=== PATIENT | female | born 2000 ===

== ENCOUNTER 2019-02-28 10:22 | Emergency (ER) | payer OTHER ==
[~2019-02-28] VITALS: Ht 182.9 cm; Wt 77.1 kg
[~2019-02-28 10:22] MED LIST: AMOX50SU PO; AZIT200SU PO; CODGUAEL PO; PROCODE120
[2019-02-28] MEDS ORDERED: Augmentin 875-1 EACH PO (12:20)
== END 2019-02-28 12:48 | disposition home or self-care (01) ==
LOC: ER 10:22
DX: L05.01 Pilonidal cyst with abscess (principal); F17.200 Nicotine dependence, unspecified, uncomplicated
CPT/HCPCS: 10080; 36415; 72193; 84703; 87070; 87075; 87205; 99284-25; Q9967

== ENCOUNTER → 2024-08-12 | Outpatient (CLI) | payer OTHER ==
[~2024-08-12] MED LIST changes: +Augmentin 875-1 EACH PO
[2024-08-12 17:39] LABS: BASOPHILS ABSOLUTE AUTO 0.02 K/mm3 (0.00-0.23); BASOPHILS PERCENT AUTO 0 % (0-2); EOSINOPHILS PERCENT AUTO 1 % (0-6); Hematocrit 37.6 % (33.0-51.0); Hemoglobin 12.7 g/dL (11.5-16.0); IMMATURE GRAN ABSOLUTE AUTO 0.04 K/mm3 (0.00-0.10); IMMATURE GRAN PERCENT AUTO 0 % (0-1); LYMPHOCYTES ABSOLUTE AUTO 1.74 K/mm3 (0.84-5.20); LYMPHOCYTES PERCENT AUTO 17 % (21-46); MONOCYTES ABSOLUTE AUTO 0.62 K/mm3 (0.16-1.47); MONOCYTES PERCENT AUTO 6 % (4-13); Mean Corpuscular HGB 29.3 pg (26.0-34.0); Mean Corpuscular HGB Conc 33.8 g/dL (31.5-36.5); Mean Corpuscular Volume 87 fL (80-100); Mean Platelet Volume 13.4 fL (9.1-12.4); NEUTROPHILS ABSOLUTE AUTO 7.72 K/mm3 (1.96-9.15); NEUTROPHILS PERCENT AUTO 75 % (41-73); Platelet Count 185 K/mm3 (150-400); RDW Coefficient Variation 13.1 % (11.7-14.2); RDW Standard Deviation 41.1 fL (35.1-46.3); Red Blood Cell Count 4.34 M/mm3 (3.80-5.20); White Blood Cell Count 10.24 K/mm3 (4.00-11.30)
== END | disposition home or self-care (01) ==
LOC: LAB SHORT 15:01 → LAB 15:01
PROVIDERS: Advanced Practice Midwife
DX: Z34.93 Encounter for supervision of normal pregnancy, unspecified, third trimester (principal)
CPT/HCPCS: 82950; 85025

== ENCOUNTER 2024-11-03 19:14 | Inpatient (IN) | payer OTHER ==
[~2024-11-03] VITALS: Ht 177.8 cm; Wt 86.4 kg
[2024-11-03] MEDS ORDERED: Carboprost Tromethamine 250 MCG/ML 1ML Amp IM PRN (19:25)
[2024-11-03] MEDS ORDERED: Lactated Ringer's 1,000 ML IV PRN ×3 (19:25)
[2024-11-03] MEDS ORDERED: Misoprostol 200 MCG Tab BC PRN (19:25)
[2024-11-03] MEDS ORDERED: Oxytocin 10 Unit / ML Vial IM PRN (19:25)
[2024-11-03] MEDS ORDERED: ePHEDrine Sulfate 50 MG/ML 1ML Injection XX PRN (19:25)
[2024-11-03] MEDS ORDERED: Methylergonovine Maleate 0.2MG / ML 1ML Amp IM PRN (19:25)
[2024-11-03] MEDS ORDERED: FentaNYL 2mcg/ml-Bup 0.1% Epd 250 ML EPI PRN (19:25)
[2024-11-03] MEDS ORDERED: OXYTOCIN/RINGER'S LACTATE 500 ML IV PRN (19:25)
[2024-11-03] MEDS ORDERED: Misoprostol 200 MCG Tab PR PRN (19:25)
[2024-11-03] MEDS ORDERED: Ondansetron HCl 2 MG / ML 2ML Vial IV PRN (19:30)
[2024-11-03] MEDS ORDERED: Calcium Carbonate 500 MG Tab Chew PO PRN (19:30)
[2024-11-03] MEDS ORDERED: Acetaminophen 500 MG Tab PO PRN (19:30)
[2024-11-03 19:35] VITALS: BP 140/83
[2024-11-03] MEDS ORDERED: Tranexamic Acid 100 ML IV PRN (19:35)
[2024-11-03] MEDS ORDERED: Misoprostol 25 MCG Tab VAG SCH (20:00)
[2024-11-03 20:05] LABS: BASOPHILS ABSOLUTE AUTO 0.01 K/mm3 (0.00-0.23); BASOPHILS PERCENT AUTO 0 % (0-2); EOSINOPHILS ABSOLUTE AUTO 0.09 K/mm3 (0.00-0.68); EOSINOPHILS PERCENT AUTO 1 % (0-6); Hemoglobin 11.6 g/dL (11.5-16.0); IMMATURE GRAN ABSOLUTE AUTO 0.03 K/mm3 (0.00-0.10); IMMATURE GRAN PERCENT AUTO 0 % (0-1); LYMPHOCYTES ABSOLUTE AUTO 1.67 K/mm3 (0.84-5.20); LYMPHOCYTES PERCENT AUTO 19 % (21-46); MONOCYTES ABSOLUTE AUTO 0.72 K/mm3 (0.16-1.47); MONOCYTES PERCENT AUTO 8 % (4-13); Mean Corpuscular HGB 28.5 pg (26.0-34.0); Mean Corpuscular HGB Conc 34.1 g/dL (31.5-36.5); Mean Corpuscular Volume 84 fL (80-100); Mean Platelet Volume 12.1 fL (9.1-12.4); NEUTROPHILS ABSOLUTE AUTO 6.22 K/mm3 (1.96-9.15); NEUTROPHILS PERCENT AUTO 71 % (41-73); Platelet Count 167 K/mm3 (150-400); RDW Coefficient Variation 13.3 % (11.7-14.2); RDW Standard Deviation 40.9 fL (35.1-46.3); Red Blood Cell Count 4.07 M/mm3 (3.80-5.20); White Blood Cell Count 8.74 K/mm3 (4.00-11.30)
[2024-11-03 20:40] VITALS: BP 129/61
[2024-11-03] MEDS ORDERED: FentaNYL Citrate 50 MCG/ML 2 ML Injection IV PRN (20:50)
[2024-11-03] MEDS ORDERED: DiphenhydrAMINE HCL 25 MG Cap PO ONE (20:55)
[2024-11-03 21:10] VITALS: BP 119/64
[2024-11-03 21:40] VITALS: BP 125/67
[2024-11-03 22:27] VITALS: BP 133/71
[2024-11-04] VITALS (25 sets, daily range): BP systolic 111–139; BP diastolic 53–82
[2024-11-04] MEDS ORDERED: DiphenhydrAMINE HCL 25 MG Cap PO ONE (00:50)
[2024-11-04] MEDS ORDERED: OXYTOCIN/RINGER'S LACTATE 500 ML IV PRN (03:20)
[2024-11-04] MEDS ORDERED: Lactated Ringer's 1,000 ML IV PRN (03:20)
[2024-11-04] MEDS ORDERED: Ampicillin Sod 2,000 MG in NS 100 ML IV ONE (06:30)
[2024-11-04] MEDS ORDERED: Calcium Carbonate 500 MG Tab Chew PO PRN (20:20)
[2024-11-04] MEDS ORDERED: Heparin Sodium,Porcine/0.5 NS 500 ML IV SCH (23:45)
[2024-11-04] MEDS ORDERED: Dose Adjust by Pharmacy XX STA (23:56)
[2024-11-05] VITALS (27 sets, daily range): BP systolic 90–161; BP diastolic 50–115
[2024-11-05] MEDS ORDERED: NS 1,000 ML IV ONE (01:23)
[2024-11-05] MEDS ORDERED: NS 1,000 ML BAG IR SCH (01:25)
[2024-11-05] MEDS ORDERED: Ampicillin Sod 2,000 MG in NS 100 ML IV ONE (06:30)
[2024-11-05] MEDS ORDERED: Ampicillin Sod 1,000 MG in NS 50 ML IV SCH (10:30)
[2024-11-05] MEDS ORDERED: CeFAZolin Sodium 2,000 MG in NS 100 ML IV ONE (18:10)
[2024-11-05] MEDS ORDERED: Azithromycin 500 MG in NS 250 ML IV ONE (18:10)
[2024-11-05] MEDS ORDERED: Lactated Ringer's 1,000 ML IV STA (18:22)
[2024-11-05] MEDS ORDERED: CeFAZolin Sodium 2,000 MG in NS 100 ML IV SCH (18:25)
[2024-11-05] MEDS ORDERED: Azithromycin 500 MG in NS 250 ML IV SCH (18:25)
[2024-11-05] MEDS ORDERED: Famotidine 10 MG/ML 2ML Vial IV ONE (18:25)
[2024-11-05] MEDS ORDERED: FentaNYL Citrate 50 MCG/ML 2 ML Injection ONE (20:28)
[2024-11-05] MEDS ORDERED: Oxytocin 10 Unit / ML Vial ONE ×2 (20:29→21:44)
[2024-11-05] MEDS ORDERED: Phenylephrine HCl 100 MCG/ML-NS 10MLSYR (1MG/10ML) ONE (20:52)
[2024-11-05] MEDS ORDERED: Bupivacaine 0.5% HCl 5 MG/ML 30MLVIAL ONE (21:03)
--- NOTE | 2024-11-05 21:15 | NUR ---
11/05/242114 ThomasMerarii A BABY BORN AT 2106 SEGMENT OF UMBILICAL CORD GIVEN TO RT. CORD BLOOD GIVEN TO FBP RN.
[2024-11-05] MEDS ORDERED: Ketorolac Tromethamine 30mg Vial ONE (21:19)
[2024-11-05] MEDS ORDERED: NS 100 ML IV ONE (21:26)
[2024-11-05] MEDS ORDERED: Ondansetron HCl 2 MG / ML 2ML Vial ONE (21:45)
[2024-11-05 21:48] LABS: PCO2 Cord - Arterial 30.8 mmHg (40-50); PO2 Cord - Arterial 29.5 mmHg (16-20); pH Cord - Arterial 7.44 (7.28-7.35)
[2024-11-05 21:54] LABS: PCO2 Cord - Venous 31.2 mmHg (40-50); PO2 Cord - Venous 28.5 mmHg (28-32); pH Umbilical Cord - Venous 7.44 (7.26-7.35)
[2024-11-05] MEDS ORDERED: Promethazine HCl 25 MG Supp PR PRN (22:10)
[2024-11-05] MEDS ORDERED: Methylergonovine Maleate 0.2MG / ML 1ML Amp IM PRN (22:10)
[2024-11-05] MEDS ORDERED: Promethazine HCl 12.5 MG Supp PR PRN (22:10)
[2024-11-05] MEDS ORDERED: Magnesium Hydroxide Conc 10 ML UDC PO PRN (22:10)
[2024-11-05] MEDS ORDERED: Acetaminophen 500 MG Tab PO PRN (22:15)
[2024-11-05] MEDS ORDERED: Misoprostol 200 MCG Tab BC PRN (22:15)
[2024-11-05] MEDS ORDERED: Lanolin Cream TOP PRN (22:15)
[2024-11-05] MEDS ORDERED: Promethazine HCl 25 MG Tab PO PRN (22:15)
[2024-11-05] MEDS ORDERED: Simethicone 80 MG Chew PO PRN (22:20)
[2024-11-05] MEDS ORDERED: Morphine Sulfate 4 MG/1 ML Injection IV PRN (22:20)
[2024-11-05] MEDS ORDERED: Ondansetron HCl 2 MG / ML 2ML Vial IV PRN (22:20)
[2024-11-05] MEDS ORDERED: Lactated Ringer's 1,000 ML IV SCH (22:20)
[2024-11-05] MEDS ORDERED: OXYTOCIN/RINGER'S LACTATE 500 ML IV SCH (22:20)
[2024-11-05] MEDS ORDERED: OxyCODONE 5 mg/Acetamin 325 mg TABLET PO PRN (22:20)
[2024-11-05] MEDS ORDERED: Ketorolac Tromethamine 30mg Vial IV SCH (23:00)
[2024-11-06] VITALS (11 sets, daily range): BP systolic 111–128; BP diastolic 56–73
[2024-11-06] MEDS ORDERED: Ibuprofen 400 MG Tab PO SCH
[2024-11-06] MEDS ORDERED: CeFAZolin Sodium 2,000 MG in NS 100 ML IV SCH (03:00)
[2024-11-06 06:09] LABS: BASOPHILS ABSOLUTE AUTO 0.02 K/mm3 (0.00-0.23); BASOPHILS PERCENT AUTO 0 % (0-2); EOSINOPHILS ABSOLUTE AUTO 0.07 K/mm3 (0.00-0.68); EOSINOPHILS PERCENT AUTO 1 % (0-6); Hematocrit 25.9 % (33.0-51.0); Hemoglobin 8.6 g/dL (11.5-16.0); IMMATURE GRAN ABSOLUTE AUTO 0.04 K/mm3 (0.00-0.10); IMMATURE GRAN PERCENT AUTO 0 % (0-1); LYMPHOCYTES ABSOLUTE AUTO 1.72 K/mm3 (0.84-5.20); LYMPHOCYTES PERCENT AUTO 16 % (21-46); MONOCYTES ABSOLUTE AUTO 0.81 K/mm3 (0.16-1.47); MONOCYTES PERCENT AUTO 8 % (4-13); Mean Corpuscular HGB Conc 33.2 g/dL (31.5-36.5); Mean Corpuscular Volume 84 fL (80-100); Mean Platelet Volume 12.5 fL (9.1-12.4); NEUTROPHILS ABSOLUTE AUTO 8.19 K/mm3 (1.96-9.15); NEUTROPHILS PERCENT AUTO 75 % (41-73); Platelet Count 147 K/mm3 (150-400); RDW Coefficient Variation 13.8 % (11.7-14.2); RDW Standard Deviation 42.9 fL (35.1-46.3); Red Blood Cell Count 3.07 M/mm3 (3.80-5.20); White Blood Cell Count 10.85 K/mm3 (4.00-11.30)
[2024-11-06] MEDS ORDERED: Docusate Sodium 100 MG Cap PO SCH (09:00)
[2024-11-06] MEDS ORDERED: Prenatal Vit/FE Fumarate/FA 1 Tab PO SCH (09:00)
[2024-11-06] MEDS ORDERED: Sod Ferric Gluc Complx/Sucrose 125 MG in NS 100 ML IV ONE (12:55)
--- NOTE | 2024-11-06 13:36 | NUR ---
RN INTO ROOM. PT STATES THAT WHEN ON THE TOILET SHE PASSED "TISSUE," UPONG ASSESSMENT, IT SOUNDS LIKE THE PATIENT HAD A BLOOD CLOT THAT WAS SEVERAL INCHES LONG BUT THIN AND STRINGY. PT ASKED TO NOT FLUSH/SAVE PAD IF IT HAPPENS AGAIN AND SIGNS TO MONITOR FOR HEMORRAGE. FUDUS FIRM BELOW UMBILICUS WITH NO BLOOD ON PAD AT THIS TIME
[2024-11-07 04:37] VITALS: BP 102/54
[2024-11-07 07:10] VITALS: BP 102/54
[2024-11-07] MEDS ORDERED: DOCU100 PO (09:49)
[2024-11-07] MEDS ORDERED: IBUP800 PO (09:49)
[2024-11-07] MEDS ORDERED: Acetaminophen325 M1 PO (09:50)
[2024-11-07] MEDS ORDERED: Percocet 5-3251 EACH PO (09:51)
[2024-11-07 10:05] VITALS: BP 108/50
== END 2024-11-07 10:25 | disposition home or self-care (01) | DRG 788 ==
LOC: OBS 19:14 → BC 19:18 → OBS 19:32 → BC 19:33
PROVIDERS: Obstetrics & Gynecology; ADMIT Advanced Practice Midwife
PROC: 10D00Z1 Extraction of Products of Conception, Low, Open Approach (ICD-10-PCS; principal; 2024-11-06)
PROC: 10907ZC Drainage of Amniotic Fluid, Therapeutic from Products of Conception, Via Natural or Artificial Opening (ICD-10-PCS; 2024-11-06)
PROC: 10H07YZ Insertion of Other Device into Products of Conception, Via Natural or Artificial Opening (ICD-10-PCS; 2024-11-06)
DX: O61.1 Failed instrumental induction of labor (principal); Z3A.39 39 weeks gestation of pregnancy; Z37.0 Single live birth; O36.5930 Maternal care for other known or suspected poor fetal growth, third trimester, not applicable or unspecified
CPT/HCPCS: 36415; 59070; 82803; 85025; 86850; 86900; 86901; 86923; A9270; J0290; J0456; J0690; J1885; J2270; J2371; J2405; J2590; J2916; J3010; J7030; J7050; J7120